=== PATIENT | male | born 1980 | race Caucasian/White ===

== ENCOUNTER 2024-02-10 11:09 | Emergency (ER) | payer OTHER, SELFPAY ==
--- NOTE | ~2024-02-10 | CT_ITS ---
EXAMINATION: CT CERVICAL SPINE WITHOUT CONTRAST CLINICAL INFORMATION: Pain following injury COMPARISON: None available. TECHNIQUE: This CT examination was performed using dose optimization techniques as appropriate, variously including the following: *Automated exposure control *Adjustment of mA and/or kV according to patient size (this includes techniques or standardized protocols for targeted exams where dose is matched to indication/reason for exam; i.e. extremities or head) *Use of iterative reconstruction technique DLP: 462.60 mGy-cm FINDINGS: The atlantooccipital and atlantoaxial articulations remain well aligned. No acute fractures of the vertebral bodies or posterior elements. The vertebral body heights are maintained. Vertebral alignment is normal. No subluxation or spondylolisthesis. Intervertebral disc heights are normal except of mild narrowing of C5-C6. There is straightening of cervical lordosis. Central canal and neural foramina appear patent without appreciable stenoses. No significant prevertebral soft tissue swelling. The thyroid gland and remaining cervical soft tissues are unremarkable. Imaged portions of the lung apices are clear. CT/CT cervical spine wo IV con IMPRESSION: 1. No fracture or subluxation. 2. Mild degenerative changes at C5-C6. Fleischner guidelines were followed.
--- NOTE | ~2024-02-10 | XR_ITS ---
EXAMINATION: XR HAND, RIGHT CLINICAL INFORMATION: Right hand pain. COMPARISON: None available. TECHNIQUE: PA, lateral, and oblique views of the right hand. FINDINGS: There is an acute intra-articular fracture at the ulnar margin of the long finger distal phalangeal base with lateral displacement of the fracture fragment by 1 mm. No additional acute fractures are identified. There is an osseous excrescence at the volar plate of the small finger middle phalangeal base which likely represents an old healed avulsion fracture. Joint spaces appear relatively well-preserved. No erosions. Bone mineralization is normal. No chondrocalcinosis. XR/XR hand RT min 3V IMPRESSION: Acute intra-articular avulsion fracture at the ulnar margin of the long finger distal phalangeal base.
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
--- NOTE | ~2024-02-10 | XR_ITS ---
EXAMINATION: XR KNEE, RIGHT CLINICAL INFORMATION: Pain. Injury. COMPARISON: None available. TECHNIQUE: Four views of the right knee. FINDINGS: Mild soft tissue swelling and subcutaneous edema at the knee joint anteromedially. No fracture or malalignment. Interference screws, osseous tunnels, unstable, and soft tissue anchor are consistent with prior ACL reconstruction. No joint effusion. Bone mineralization is normal. Joint spaces are well-preserved. XR/XR knee RT 3V IMPRESSION: Mild soft tissue swelling at the knee joint anteromedially. No acute osseous findings.
--- NOTE | ~2024-02-10 | CT_ITS ---
EXAMINATION: CT HEAD WITHOUT CONTRAST CLINICAL INFORMATION: Fall head injury COMPARISON: None available. TECHNIQUE: Contiguous axial imaging was performed from the skull base to vertex without intravenous administration of contrast. This CT examination was performed using dose optimization techniques as appropriate, variously including the following: *Automated exposure control *Adjustment of mA and/or kV according to patient size (this includes techniques or standardized protocols for targeted exams where dose is matched to indication/reason for exam; i.e. extremities or head) *Use of iterative reconstruction technique DLP: 629.5 mGy-cm FINDINGS: There is no evidence of acute intracranial hemorrhage or territorial infarction. No abnormal mass effect or midline shift is seen. Aguilar to white matter differentiation is well preserved. No extra-axial fluid collections are identified. The ventricles are normal in size. There is no abnormal attenuation within the brain parenchyma. The osseous structures and soft tissues are normal. The mastoid air cells and visualized portions of the paranasal sinuses are well aerated. CT/CT head/brain wo IV con IMPRESSION: No acute intracranial pathology.
--- NOTE | ~2024-02-10 | CT_ITS ---
EXAMINATION: CT CHEST WITHOUT CONTRAST CLINICAL INFORMATION: Left-sided rib pain after injury COMPARISON: None available. TECHNIQUE: Multidetector volumetric CT imaging of the chest was done. Axial MIP volume rendering provided. Sagittal and coronal reformatted images were obtained. This CT examination was performed using dose optimization techniques as appropriate, variously including the following: *Automated exposure control *Adjustment of mA and/or kV according to patient size (this includes techniques or standardized protocols for targeted exams where dose is matched to indication/reason for exam; i.e. extremities or head) *Use of iterative reconstruction technique DLP: 216 mGy-cm FINDINGS: LUNGS: The lungs are clear with no evidence of inflammation or concerning nodules. There is a 3 mm right upper lobe pulmonary nodule present (27:177 and 31:104). MEDIASTINUM: The mediastinum is normal. CORONARY ARTERY CALCIFICATION: None visualized on this study. PLEURA: There is no pleural effusion. No pleural mass or thickening. AXILLA/CHEST WALL: No lymphadenopathy. Tiny amount of gynecomastia present. UPPER ABDOMEN: There is hepatic steatosis. Adrenal glands appear normal OSSEOUS STRUCTURES: Included portions of ribs on this study show no evidence of fracture. The inferior portions of the 9th through 12th ribs are not included on this exam. CT/CT chest wo IV con IMPRESSION: 1. No evidence of a rib fracture. 2. Incidental note made of a 3 mm right upper lobe pulmonary nodule and hepatic steatosis. According to the UPDATED 2017 Fleischner Society recommendations, the advised follow-up imaging for nodules <6mm in the upper lobes is not necessarily required in low-risk patients. In high-risk patients with a nodule in the upper lobe and/or demonstrating suspicious morphology, an optional CT follow-up at 12 months may be obtained. If stable at 12 months, no further follow-up is recommended.
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
[2024-02-10 12:34] VITALS: BP 142/90; PULSE 72; RESP 18; TEMP 36.2; O2SAT 100; BMI 28.3
[2024-02-10] MEDS: oxyCODONE HCl Immed Release 5 MG TABLET 10 MG PO (15:15)
--- NOTE | 2024-02-10 15:16 | PC.NURSE ---
Pt having back pain 05/12, medicated per OCT.
[2024-02-10] MEDS: Morphine Sulfate Immed Release 15 MG TABLET PO (19:08)
[2024-02-10] MEDS: Bacitracin Oint 0.9 GM PACKET 1 APPL TOPICAL (19:08)
[2024-02-10 19:14] VITALS: BP 138/99; PULSE 67; RESP 17; O2SAT 97
[2024-02-10 19:20] VITALS: BP 138/99; PULSE 67; RESP 17; TEMP 36.7; O2SAT 97
== END 2024-02-10 19:21 | disposition home or self-care (01) ==
PROVIDERS: Emergency Provider Internal Medicine
DX: S62.521A Displaced fracture of distal phalanx of right thumb, initial encounter for closed fracture (principal); G89.11 Acute pain due to trauma; M54.50 Low back pain, unspecified; M25.561 Pain in right knee; R07.81 Pleurodynia; X58.XXXA Exposure to other specified factors, initial encounter; Y93.9 Activity, unspecified; Y92.9 Unspecified place or not applicable; Y99.0 Civilian activity done for income or pay
CPT/HCPCS: 70450; 71250; 72125; 72132; 73130; 73562; 99284